=== PATIENT | male | born 1935 | race Two or more races ===

== ENCOUNTER 2018-02-12 07:01 | Emergency (ER) | payer MEDICARE, OTHER ==
--- NOTE | 2018-02-12 08:05 | ED Physician Documentation ---
History of Present Illness - Stated complaint Stated Complaint: RASH BILAT LEGS/ARM - Chief complaint Chief Complaint: General - History obtained from History obtained from: Patient - History of Present Illness Timing: How many days ago (5) Pain level max: 0 Pain level now: 0 Quality: itchy Radiates to: no Improved by: nothing. Worsened by: nothing - Treatment prior to arrival Treatment prior to arrival: benadryl pill - Additonal information Additional information: Pt stated was in [facility] 5 days ago and went hiking along trees and waterfalls. Denies insect bites. However, he noticed a few itchy rash on both legs the following day. Rash progressively spread up his legs to the groin. And noticed recently both his arms have a few of the same itchy rash. States stayed in a condo while in [facility] with and another couple who did not get any rash. They just returned yesterday. Denies any fever, URI, pain. Took benadryl pills once without relief. Review of Systems Ten Systems: 10 systems reviewed and negative Constitutional: denies: Fever, Chills, Myalgias, Fatigue Throat: denies: Sore throat Cardiac: denies: Chest pain / pressure Respiratory: denies: Dyspnea, Cough GI: denies: Abdominal Pain, Nausea, Vomiting, Diarrhea : denies: Discharge Skin: reports: Rash Musculoskeletal: denies: Extremity pain Neurologic: denies: Generalized weakness PD PAST MEDICAL HISTORY - Past Medical History Past Medical History: Yes Cardiovascular: Hypertension, High cholesterol Endocrine/Autoimmune: Type 2 diabetes - Past Surgical History Past Surgical History: No - Present Medications Home Medications: Ambulatory Orders Medication Instructions Recorded Confirmed Aspirin [Aspir 81] 81 mg PO DAILY 07/17/13 07/17/13 HYDROcod/ACETAM 5/325 [Vicodin 1 - 2 ea PO Q6H PRN #15 tablet 07/17/13 5/325] Lisinopril 40 mg PO DAILY 07/17/13 07/17/13 Metformin HCl [Metformin HCl ER] 1,000 mg PO BID 07/17/13 07/17/13 Simvastatin 40 mg PO HS 07/17/13 07/17/13 glipiZIDE [Glucotrol] 10 mg PO 0730 07/17/13 07/17/13 oxyCODONE/ACET 5/325 [Percocet 5 1 each PO Q4-6H PRN #15 tablet 09/10/15 mg/325 mg] Hydrocortisone 28.35 gm TP DAILY 5 Days #1 02/12/18 cream..g. Permethrin 5% Cream 60 applic TOP ONCE 5 Days #1 tube 02/12/18 - Allergies Allergies/Adverse Reactions: Allergies Allergy/AdvReac Type Severity Reaction Status Date / Time shellfish derived Allergy anaphylaxis Verified 07/17/13 10:37 - Social History Does the pt smoke?: No Smoking Status: Never smoker Does the pt drink ETOH?: Yes Does the pt have substance abuse?: No - Family History Family history: reports: Non contributory - Immunizations Immunizations are current?: Yes - POLST Patient has POLST: No PD ED PE NORMAL - Vitals Vital signs reviewed: Yes - General General: Alert and oriented X 3, No acute distress, Well developed/nourished - HEENT HEENT: Moist mucous membranes, Pharynx benign - Neck Neck: Supple, no meningeal sign - Cardiac Cardiac: RRR, No murmur - Respiratory Respiratory: No respiratory distress, Clear bilaterally - Abdomen Abdomen: Normal bowel sounds, Soft, Non tender, Non distended - Derm Derm: Normal color, Warm and dry, Other (Multiple single pinpoint red rash on bilateral legs and a few on bilateral arms. Pruritic. Nonvesicular. No drainage. Some appears like rash is marching lines. No rash between fingers or toes.) - Extremities Extremities: No deformity, No tenderness to palpate, Normal ROM s pain, No edema - Neuro Neuro: Alert and oriented X 3 - Psych Psych: Normal mood, Normal affect Results - Vitals Vitals: Vital Signs - 24 hr 02/12/18 07:06 Temperature 36.3 C L Heart Rate 84 Respiratory 14 Rate Blood Pressure 102/86 H O2 Saturation 97 Oxygen O2 Source Room air PD MEDICAL DECISION MAKING - ED course Complexity details: considered differential (insect bites, contact dermatitis, scabies, bed bugs), d/w patient (Informed pt of my differentials. Instructed to wash all his clothes and linens in hot water and to take OTC benadryl tabs for itching PRN. Will prescribe permithrin and hydrocorticone cream) Departure - Departure Disposition: 01 Home, Self Care Clinical Impression: Rash and nonspecific skin eruption Condition: Good Instructions: HYDROCORTISONE Cream, ED Scabies Follow-Up: DILAN FREED MD [Primary Care Provider] - Within 1 week Prescriptions: Hydrocortisone 28.35 gm TP DAILY 5 Days #1 cream..g. Permethrin 5% Cream 60 applic TOP ONCE 5 Days #1 tube Comments: USE THE PRESCRIBED CREAMS DIRECTED. OTC BENADRYL 25 MG 1 TAB EVERY 6 HOURS NEEDED FOR ITCHING. FOLLOW UP W/ YOUR PCP FOR REEVALUATION IN 1 WEEK. GET A DERMATOLOGY REFERRAL BECAUSE IT'S DIFFICULT TO DIFFERENTIATE YOUR RASH - SCABIES VS BED BUGS VS INSECT BITES (FROM [facility]?). IF WORSE RETURN TO THE E.R.
[2018-02-12 08:27] VITALS: BP 123/74
== END 2018-02-12 08:27 | disposition home or self-care (01) ==
LOC: ED 07:01
DX: R21 Rash and other nonspecific skin eruption (principal); I10 Essential (primary) hypertension; E78.00 Pure hypercholesterolemia, unspecified; E11.9 Type 2 diabetes mellitus without complications; Z79.82 Long term (current) use of aspirin
CPT/HCPCS: 99283

== ENCOUNTER 2023-07-02 08:58 | Day surgery (SDC) | payer MEDICARE, OTHER ==
[2023-07-02] MEDS: KETOROLAC 0.45% OPHTH DROPS ONE (09:35)
[2023-07-02] MEDS: PROPARACAINE 0.5% OPHTH DROPS 15 ML ONE (09:35)
[2023-07-02] MEDS: LACTATED RINGERS 1,000 ML IV ONE (09:38)
[2023-07-02] MEDS ORDERED: TIMOLOL 0.5% OPHTH DROPS ONE (10:36)
[2023-07-02] MEDS ORDERED: BSS/LIDOCAINE/EPINEPHRINE 1 ML VIAL ONE (10:36)
[2023-07-02] MEDS ORDERED: EPINEPHrine 1 MG/ML AMP ONE (10:36)
[2023-07-02] MEDS ORDERED: BRIMONIDINE 0.2% OPHTH DROPS 5 ML ONE (10:36)
[2023-07-02] MEDS ORDERED: TRIAMCIN/MOXIFLOX OPHTHALMIC 0.6 ML VIAL IO ONE ×2 (10:36→10:59)
[2023-07-02] MEDS ORDERED: MIDAZOLAM 2 MG/2 ML VIAL ONE (10:41)
--- NOTE | 2023-07-02 10:41 | ANESTHESIA ---
Pre-Anesthesia VS, & Labs - Diagnosis malposition of right IOL - Procedure reposition of right IOL Vital Signs: Temp Pulse Resp BP Pulse Ox O2 Flow Rate 36.6 C 63 16 148/70 H 100 07/02/23 09:21 07/02/23 09:21 07/02/23 09:21 07/02/23 09:21 07/02/23 09:21 Height: 5 ft 7 in Weight (kg): 62.4 kg Body Mass Index: 21.5 BMI Classification: Normal - NPO >8 hours - Lab Results Current Lab Results: Laboratory Tests 07/02/23 09:34: POC Whole Bld Glucose 218 H Home Medications and Allergies Metformin HCl [Metformin HCl ER] 1,000 mg PO BID 07/17/13 glipiZIDE [Glucotrol] 10 mg PO 0730 07/17/13 lisinopriL [Lisinopril] 40 mg PO DAILY 07/17/13 Atorvastatin [Lipitor] 10 mg PO HS 05/21/22 Carbamazepine [Equetro] 100 mg PO BID PRN 05/21/22 Allergies/Adverse Reactions: Allergies Allergy/AdvReac Type Severity Reaction Status Date / Time shellfish derived Allergy Severe anaphylaxis Verified 07/01/23 14:27 Anes History & Medical History - Anesthetic History Anesthesia Complications: reports: No previous complications - Medical History Cardiovascular: reports: Hypertension, High cholesterol Pulmonary: reports: None Gastrointestinal: reports: None Urinary: reports: None Musculoskeletal: reports: Other Endocrine/Autoimmune: reports: Type 2 diabetes Skin: reports: None Smoking Status: Never smoker - Surgical History General: reports: Colonoscopy Eyes Ears Nose Throat (EENT): reports: Cataracts Exam General: Alert, Oriented x3 Dental: WNL Mouth Opening: Greater than 4 Fingerbreadths Neck Mobility: Normal Mallampati classification: II Thyromental Distance: greater than 6 cm Respiratory: Lungs clear Cardiovascular: Regular rate Plan Anesthesia Type: MAC Consent for Procedure(s) Verified and Reviewed: Yes Code Status: Attempt Resuscitation ASA classification: 2-Mild systemic disease Is this case an emergency?: No
--- NOTE | 2023-07-02 10:53 | ANESTHESIA ---
Pre-Anesthesia VS, & Labs - Diagnosis malposition of lens - Procedure reposition of left lens Vital Signs: Temp Pulse Resp BP Pulse Ox O2 Flow Rate 36.6 C 63 16 148/70 H 100 07/02/23 09:21 07/02/23 09:21 07/02/23 09:21 07/02/23 09:21 07/02/23 09:21 Height: 5 ft 7 in Weight (kg): 62.4 kg Body Mass Index: 21.5 BMI Classification: Normal - Lab Results Current Lab Results: Laboratory Tests 07/02/23 09:34: POC Whole Bld Glucose 218 H Home Medications and Allergies Metformin HCl [Metformin HCl ER] 1,000 mg PO BID 07/17/13 glipiZIDE [Glucotrol] 10 mg PO 0730 07/17/13 lisinopriL [Lisinopril] 40 mg PO DAILY 07/17/13 Atorvastatin [Lipitor] 10 mg PO HS 05/21/22 Carbamazepine [Equetro] 100 mg PO BID PRN 05/21/22 Allergies/Adverse Reactions: Allergies Allergy/AdvReac Type Severity Reaction Status Date / Time shellfish derived Allergy Severe anaphylaxis Verified 07/01/23 14:27 Anes History & Medical History - Medical History Cardiovascular: reports: Hypertension, High cholesterol Pulmonary: reports: None Gastrointestinal: reports: None Urinary: reports: None Musculoskeletal: reports: Other Endocrine/Autoimmune: reports: Type 2 diabetes Skin: reports: None Smoking Status: Never smoker - Surgical History General: reports: Colonoscopy Eyes Ears Nose Throat (EENT): reports: Cataracts
[2023-07-02] MEDS ORDERED: fentaNYL 100 MCG/2 ML VIAL ONE (11:09)
[2023-07-02] MEDS: BRIMONIDINE 0.2% OPHTH DROPS 5 ML RIGHTEYE ONE (11:15)
[2023-07-02] MEDS: timoloL maleate 0.5% OPHTH DROPS (10ML) RIGHTEYE ONE (11:16)
[2023-07-02] MEDS: EPINEPHrine 1 MG/ML AMP IR ONE (11:16)
[2023-07-02] MEDS: BSS/LIDOCAINE/EPINEPHRINE 1 ML SYRINGE IO ONE (11:17)
[2023-07-02] MEDS: TRIAMCIN/MOXIFLOX OPHTHALMIC 0.6 ML VIAL IO ONE (11:17)
[2023-07-02] MEDS: VANCOMYCIN OPHTH (TOPICAL) 10 MG/ML SYRINGE TOP ONE (11:18)
[2023-07-02] MEDS: PROPARACAINE 0.5% OPHTH DROPS 15 ML RIGHTEYE ONE (11:18)
[2023-07-02] MEDS ORDERED: ACETYLCHOLINE 20 MG/2 ML KIT IO ONE (11:44)
[2023-07-02] MEDS: ACETYLCHOLINE 20 MG/2 ML KIT IO ONE (11:46)
[2023-07-02] MEDS: LACTATED RINGERS 900 ML IV ONE (12:10)
[2023-07-02 12:21] VITALS: O2SAT 98
--- NOTE | 2023-07-02 12:23 | OPERATIVE REPORT ---
Operative Report - Other Other Information/Narrative: Date of Surgery: 07/02/23 Preop Dx: Subluxed intraocular lens (IOL) right eye. Cataract surgery was performed in the right eye on with placement of a sulcus fixated IOL due to capsular rupture. Postop Dx: Same Procedure: Repositioning and iris suture fixation of the already implanted IOL. Surgeon: Dr. Eduardo Calzada Anesthesia: Monitored anesthesia care Complications: None Operative Indications: This is a 87-year-old M with declingin vision and occasio nal double vision in the right eye. Best corrected visual acuity was 20/50 with glare to light perception vision in the right eye. Indications for surgery were: - Overall decrease in vision - Difficulty reading - Difficulty seeing street signs - Difficulty driving at night because of headlights from other vehicles - Difficulty with glare or bright lights in any situation The patient was consented at length concerning the risks and benefits of IOL repositioning surgery after which the patient expressed a desire to proceed with surgery. Operative Procedure: The patient was taken into OR#3 and placed under monitored anesthesia care. A surgical time-out was conducted confirming correct patient, correct procedure, and correct surgical site. The patient was given topical anesthesia and then prepped and draped in the usual sterile fashion. Four 1mm paracentesis incisions were placed about 90 degrees apart. Intracameral Shugarcaine was injected into the anterior chamber followed by a dispersive viscoelastic. The IOL was prolapsed into the anterior chamber leaving the Prolene haptics under the iris (IOL capture). Through the paracentesis wounds a 9-0 Prolene suture was passed through the iris and under the haptic and out the wound 9-0 degrees away using a CTC-6 needle. A three throw knot was passed over the iris and haptic through one of the wounds. This was done for both haptics. Once the IOL was centered and incarcerated iris pulled out the knots the IOL was pushed back behind the iris and the IOL recentered and pupil rounded out. The knots were then locked with three one-throw locks each and then cut short. The iris was round and centered in the eye. Infusion and aspiration were used to evacuate the viscoelastic materials from the eye. The wounds were hydrated and the eye inflated to physiologic pressure using balanced salt solution. Approximately 0.25ml of a mixture of triamcinolone and moxifloxacin was injected trans-sclerally into the vitreous in the inferotemporal quadrant using a 30 gauge cannula. An additional 0.25ml of a mixture of triamcinolone and moxifloxacin was injected subconjunctivally in the superior quadrant for infection and inflammation prophylaxis. Wound integrity was checked with Weck- Tanvi sponges. The patient was taken from the operating room in good condition and given post-op instructions.
--- NOTE | 2023-07-02 12:39 | ANESTHESIA POST OP EVALUATION ---
Anesthesia Post Eval - Post Anesthesia Eval Vitals: Last Vital Signs Temp 36.5 C 07/02/23 12:10 Pulse 91 07/02/23 12:10 Resp 16 07/02/23 12:10 BP 143/66 H 07/02/23 12:10 Pulse Ox 98 07/02/23 12:10 O2 Flow Rate CV Function Including HR & BP: Stable Pain Control: Satisfactory Nausea & Vomiting: Negative Mental Status: Baseline Respiratory Status: Airway Patent Hydration Status: Satisfactory Anesthesia Complications: None
[2023-07-02 12:50] VITALS: BP 150/66
== END 2023-07-02 08:59 | disposition home or self-care (01) ==
LOC: SDS 08:58
PROVIDERS: ATTEND Ophthalmology
DX: T85.22XA Displacement of intraocular lens, initial encounter (principal); E11.9 Type 2 diabetes mellitus without complications; I10 Essential (primary) hypertension
CPT/HCPCS: 66825; A9270; J3490; J7120